=== PATIENT | female | born 1995 ===

== ENCOUNTER 2022-11-03 14:07 | Emergency (ER) | payer OTHER, SELFPAY ==
--- NOTE | ~2022-11-03 | CT_ITS ---
EXAMINATION: CT ANGIOGRAM OF THE CHEST WITH AND WITHOUT CONTRAST (CT PULMONARY ANGIOGRAM FOR PE) CLINICAL INFORMATION: Reason for Exam CP, hx of PE, stopped AC for several weeks COMPARISON: None available. TECHNIQUE: Prior to contrast administration, noncontrast localization images were obtained. Subsequently, multidetector volumetric imaging was performed from the thoracic inlet to below the diaphragms following the administration of 65 mL Omnipaque 350 intravenous contrast. No contrast reaction reported Sagittal, coronal, and MIP oblique sagittal reformatted images were obtained on the CT workstation, uploaded to PACS, and reviewed. This CT examination was performed using dose optimization techniques as appropriate, variously including the following: *Automated exposure control *Adjustment of mA and/or kV according to patient size (this includes techniques or standardized protocols for targeted exams where dose is matched to indication/reason for exam; i.e. extremities or head) *Use of iterative reconstruction technique Total exam dose-length product 221 mGy-cm FINDINGS: QUALITY OF STUDY/CONTRAST BOLUS: Satisfactory. PULMONARY ARTERIES: No pulmonary emboli. THORACIC AORTA: No aneurysm. LUNG: Mild diffuse bronchial wall thickening with scattered intrabronchial mucous secretions. No focal consolidation or significant groundglass disease. Central airways are patent. PLEURA: No pleural effusion or pneumothorax. MEDIASTINUM: Normal heart size. No pericardial effusion. No hilar or mediastinal lymphadenopathy. No evidence of septal bowing or right heart strain. CORONARY ARTERY CALCIFICATION: None visualized on this study. CHEST WALL/AXILLA: No axillary or internal mammary lymphadenopathy. OSSEOUS STRUCTURES: No acute or suspicious osseous abnormality. UPPER ABDOMEN: Unremarkable. No reflux of contrast into the hepatic veins to suggest elevated right heart pressures. CT/CT angio chest PE protocol IMPRESSION: 1. No evidence of pulmonary embolism. 2. Mild diffuse bronchial wall thickening with scattered intrabronchial mucous secretions, suggesting small airways disease. VTE: negative
[2022-11-03 15:16] VITALS: BP 117/74; PULSE 75; RESP 18; TEMP 36.3; O2SAT 98; BMI 23.1
--- NOTE | 2022-11-03 15:16 | ED_ITS ---
HPI - SOB/Dyspnea General Chief Complaint: Dyspnea Stated Complaint: sent from Time Seen by Provider: 11/03/22 17:20 Source: patient Mode of arrival: ambulatory Limitations: no limitations History of Present Illness HPI Narrative: 27-year-old female with history of pulmonary embolus and strong family history of pulmonary embolus presents with chest pain, shortness of breath. Symptoms started this past weekend. She describes them as mild in the onset and then became more moderate. Symptoms included chest pain, shortness of breath, diaphoresis but no fevers or chills. Symptoms appear to have been worsened by exertion. She denies any fevers or chills. No cough or mucus production. She also did describe some calf soreness bilaterally. There has been no swelling in her legs. Patient is unclear with the etiology of her clotting disorder might be or family clotting disorders. Workup was reportedly negative. Patient has stopped her anticoagulation approximately 1 month ago. Her physician at sent in a refill the medication and just started it up again 2 days ago. Related Data Previous Rx's Medication Instructions Recorded albuterol sulfate 90 mcg/actuation 2 puff inhalation QID PRN 11/03/22 aerosol inhaler shortness of breath or wheezing #6.7 grams prednisone 10 mg tablet 10 mg PO DAILY #3 tabs 11/03/22 Allergies Allergy/AdvReac Type Severity Reaction Status Date / Time No Known Allergies Allergy Verified 11/03/22 15:15 Review of Systems Review of Systems: CONSTITUTIONAL: Denies weight loss, fever and chills. HEENT: Denies changes in vision and hearing. RESPIRATORY: + SOB - cough. CV: + palpitations no CP. GI: Denies abdominal pain, nausea, vomiting and diarrhea. : Denies dysuria and urinary frequency. MSK: Denies myalgia and joint pain. SKIN: Denies rash and pruritus. NEUROLOGICAL: Denies headache and syncope. PSYCHIATRIC: Denies recent changes in mood. Denies anxiety and depression. All other ROS are negative unless in HPI PMFSH Social History Social History Advance Directives: No Advance Directives Information Provided: Yes Physical Exam Vital Signs: Vital Signs: Last Vital Signs Temp 98.1 F 11/03/22 19:21 Pulse 67 11/03/22 19:21 Resp 17 11/03/22 19:21 BP 101/40 L 11/03/22 19:21 Pulse Ox 100 11/03/22 19:21 O2 Del Method Room Air 11/03/22 19:21 BMI result Body Mass Index 23.1 GEN: Well developed, no acute distress, alert, oriented HEENT: Normocephalic, atraumatic, normal external ears, nose appears normal, no oropharyngeal edema or exudates Eyes: Normal to appearance Neck: Supple, no lymphadenopathy Respiratory: Talks in complete sentences, no respiratory distress, clear to auscultation bilaterally Cardiovascular: Regular rate and rhythm, no murmurs rubs or gallops Abdomen: Soft, nontender, nondistended, no guarding, no rebound Back: No CVA tenderness Extremities: No clubbing cyanosis or edema Neurologic: No focal neurologic deficits, cranial nerves 2-12 intact, strength is 5/5 bilaterally Skin: No rash Course Course Course Narrative: This is an RME: Additional HPI, ROS, PE not included below will be deferred to primary provider. This is a [id number]-female, with a history of PE (diagnosed in Dec 2021 - was on coumadin up until September 2022 - stopped, just started xarelto on thursday), presenting to the emergency department with pleuritic chest pain, shortness of breath x 1 week. Has had sweats and calf pain since thursday. Reports tachycardia. [facility]. Appears comfortable, VSS. Plan: Labs, EKG, CTA chest Reevaluation(s) Reevaluation #1: The workup is complete. Patient does not have a PE. She can be discharged at this time continue anticoagulation. There is evidence of reactive airways disease and she did think she might have respiratory infection. Will start her on very low-dose steroid and inhaler. Time: 19:42 Medical Decision Making Medical Decision Making MDM Narrative: 27-year-old female with history of pulmonary embolus presents with shortness of breath. Also associated with chest pain. Examination is benign. EKG shows no evidence of right heart strain. Will check a CT scan angiogram the chest rule out acute pulmonary embolism possible other differential diagnoses. Atypical chest pain, musculoskeletal chest pain, chest wall pain, myocardial infarction, pericarditis, myocarditis, anxiety, stress, reflux, pneumonia, pulmonary embolus, dissection Differential Diagnosis Differential Diagnoses: The differential diagnosis associated with the presentation includes ( See above) Admission/Observation Consideration of admission/observation: Escalation of care including admission/observation considered Lab Data MDM Lab Attestation statement: I reviewed the patient's lab results. 11/03/22 15:37 11/03/22 15:37 Labs: Lab Results 11/03/22 11/03/22 11/03/22 Range/Units 15:37 15:37 15:37 WBC 8.7 (4.8-10.8) X10*3/uL RBC 4.67 (4.20-5.50) X10*6/uL Hgb 14.0 (12.0-16.0) g/dl Hct 41.9 (37.0-47.0) % MCV 89.7 (80.0-98.0) fL MCH 30.0 (27.0-33.0) pg MCHC 33.4 (31.0-35.0) g/dl RDW 13.3 (11.0-16.0) % Plt Count 356 (160-400) X10*3/uL MPV 8.5 L (9.4-12.3) fL Immature Gran % (Auto) 0.1 (0.0-0.4) % Neut % (Auto) 55.5 (45-73) % Lymph % (Auto) 31.7 (20-40) % [place] % (Auto) 8.0 (2-11) % Eos % (Auto) 4.0 (0-4) % Baso % (Auto) 0.7 (0-2) % Lymph # (Auto) 2.8 (1.2-4.9) X10*3/uL [place] # (Auto) 0.7 (0.1-1.2) X10*3/uL Eos # (Auto) 0.4 (0.0-0.4) X10*3/uL Baso # (Auto) 0.1 (0.0-0.2) X10*3/uL Abs Immat Gran (auto) 0.01 (0.00-0.03) X10*3/uL Absolute Neuts (auto) 4.8 (2.0-8.3) x10*3/uL Absolute Nucleated RBC 0.000 (0.0-0.012) X10*3/uL Nucleated RBC % (auto) 0.0 (0.0-0.2) /100WBC PT 11.0 L (11.1-13.3) SEC INR 0.9 (0.9-1.1) APTT 29.2 (26.0-36.4) SEC Sodium 137 (135-145) mmol/L Potassium 3.8 (3.3-5.1) mmol/L Chloride 110 H (96-108) mmol/L Carbon Dioxide 19 L (22-29) mmol/L Anion Gap 12 (12-20) BUN 13 (9-16) mg/dL Creatinine 0.67 (0.5-1.4) mg/dL Estim Creat Clear Calc 97.9 Estimated GFR > 60 Random Glucose 89 (60-115) mg/dL Calcium 9.1 (8.4-10.2) mg/dL Total Bilirubin 0.3 (0.0-1.0) mg/dL Direct Bilirubin 0.1 (0.0-0.5) mg/dL AST 15 (5-31) U/L ALT 12 (0-31) U/L Alkaline Phosphatase 70 (39-117) U/L Total Protein 7.4 (6.5-8.0) g/dL Albumin 3.7 (3.5-5.0) g/dL Independent Interpretation I performed an independent interpretation of an: EKG ( normal sinus rhythm heart rate 74, no acute ST elevations depressions, no abnormal intervals. Normal EKG) and CT Scan ( angio chest: No acute large pulmonary embolus) Radiology Impression Discussion of test interpretation with radiology: I have reviewed the radiologist's reading. Radiologist Impression: CT/CT angio chest PE protocol IMPRESSION: 1.? No evidence of pulmonary embolism. 2.? Mild diffuse bronchial wall thickening with scattered intrabronchial mucous secretions, suggesting small airways disease. ? VTE: negative Dictated By: Miri Ramirez Signed By: <Electronically signed by Miri? James in OV> 11/03/221907 Prescription Management I considered prescription management with: Pain Medication Critical Care Time Critical Care Time Critical Care Time: Yes Total Critical Care Time: 35 Attestation: Due to a high probability of clinically significant, life threatening deterioration, the patient required my highest level of preparedness to intervene emergently and I personally spent this critical care time directly and personally managing the patient. This critical care time included obtaining a history; examining the patient; pulse oximetry; ordering and review of studies; arranging urgent treatment with development of a management plan; evaluation of patient's response to treatment; frequent reassessment; and, discussions with other providers. This critical care time was performed to assess and manage the high probability of imminent, life-threatening deterioration that could result in multi-organ failure. It was exclusive of separately billable procedures and treating other patients and teaching time. Discharge Plan Discharge Clinical Impression: Asthma with exacerbation, Hx of pulmonary embolus Patient Disposition: Home, Self-Care Instructions: Asthma (ED), How to Use a Metered-Dose Inhaler (ED) Prescriptions: New prednisone 10 mg tablet 10 mg PO DAILY Qty: 3 0RF albuterol sulfate 90 mcg/actuation HFA aerosol inhaler 2 puff inhalation QID PRN (Reason: shortness of breath or wheezing) Qty: 6.7 0RF Referrals: Physician,Unknown J [Primary Care Provider] - (PMD as needed)
--- NOTE | 2022-11-03 15:21 | ECG_ITS ---
Test Reason : chest pain Blood Pressure : / mmHG Vent. Rate : 074 BPM Atrial Rate : 074 BPM P-R Int : 130 ms QRS Dur : 070 ms QT Int : 376 ms P-R-T Axes : 056 073 035 degrees QTc Int : 417 ms Normal sinus rhythm Normal ECG No previous ECGs available Referred By: Lilli Varner Electronically Signed By:DANNA RAMIRES
--- NOTE | 2022-11-03 15:24 | MHC.EDTECH ---
EKG completed and signed by attending. Labs collected and sent
[2022-11-03 15:41] LABS: MANUAL DIFF FLAG NO
[2022-11-03 15:42] LABS: Basophils Absolute Auto 0.1 X10*3/uL (0.0-0.2); Basophils Percent Auto 0.7 % (0-2); Eosinophils Absolute Auto 0.4 X10*3/uL (0.0-0.4); Hematocrit 41.9 % (37.0-47.0); Imm Gran Abs Auto 0.01 X10*3/uL (0.00-0.03); Imm Gran Pct Auto 0.1 % (0.0-0.4); Lymphocytes Absolute Auto 2.8 X10*3/uL (1.2-4.9); Lymphocytes Percent Auto 31.7 % (20-40); Mean Corpuscular HGB Conc 33.4 g/dl (31.0-35.0); Mean Corpuscular Volume 89.7 fL (80.0-98.0); Mean Platelet Volume 8.5 fL (9.4-12.3); Monocytes Absolute Auto 0.7 X10*3/uL (0.1-1.2); Neutrophils Absolute Auto 4.8 x10*3/uL (2.0-8.3); Neutrophils Percent Auto 55.5 % (45-73); Platelet Count 356 X10*3/uL (160-400); Red Blood Count 4.67 X10*6/uL (4.20-5.50); Red Cell Distribution Width 13.3 % (11.0-16.0); White Blood Count 8.7 X10*3/uL (4.8-10.8)
[2022-11-03 15:48] LABS: INTERNATIONAL NORM RATIO 0.9 (0.9-1.1)
[2022-11-03 15:50] LABS: Partial Thromboplastin Time 29.2 SEC (26.0-36.4)
[2022-11-03 16:19] LABS: Alanine Aminotransferase 12 U/L (0-31); Albumin Level 3.7 g/dL (3.5-5.0); Alkaline Phosphatase 70 U/L (39-117); Anion Gap 12 (12-20); Aspartate Amino Transferase 15 U/L (5-31); Bilirubin Direct 0.1 mg/dL (0.0-0.5); Bilirubin Total 0.3 mg/dL (0.0-1.0); Blood Urea Nitrogen 13 mg/dL (9-16); Calcium 9.1 mg/dL (8.4-10.2); Carbon Dioxide 19 mmol/L (22-29); Chloride 110 mmol/L (96-108); Creatinine Clr Calc Pharmacy 97.9; Estimated Glomerular Filt Rate > 60; Glucose Random 89 mg/dL (60-115); Potassium 3.8 mmol/L (3.3-5.1); Sodium 137 mmol/L (135-145); Total Protein 7.4 g/dL (6.5-8.0)
--- NOTE | 2022-11-03 18:02 | PC.NURSE ---
Dr. Dorantes placed ultrasound guided 20g in LAC. Pt now resting comfortably, respirations even and unlabored, normal sinus on monitor
[2022-11-03 19:21] VITALS: BP 101/40; PULSE 67; RESP 17; TEMP 36.7; O2SAT 100
--- NOTE | 2022-11-03 19:49 | MHC.EDTECH ---
Brought patient erika shaista and saltine crackers.
--- NOTE | 2022-11-03 20:25 | PC.NURSE ---
pt talking in full sentences, skin pink warm and dry. no s/s of resp distress. sat wn. steady gait. 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
== END 2022-11-03 20:29 | disposition home or self-care (01) ==
PROVIDERS: Physician Assistant Medical; Emergency Provider Emergency Medicine
DX: J45.901 Unspecified asthma with (acute) exacerbation (principal); R06.02 Shortness of breath; R07.89 Other chest pain; Z79.899 Other long term (current) drug therapy
CPT/HCPCS: 36415; 71275; 80048; 80076; 85025; 85610; 85730; 93005; 99284

== ENCOUNTER 2023-02-26 10:58 | Emergency (ER) | payer OTHER, SELFPAY ==
--- NOTE | ~2023-02-26 | CT_ITS ---
EXAMINATION: CT HEAD WITHOUT CONTRAST CLINICAL INFORMATION: Headache. COMPARISON: None available. TECHNIQUE: Contiguous axial imaging was performed from the skull base to vertex without intravenous administration of contrast. This CT examination was performed using dose optimization techniques as appropriate, variously including the following: *Automated exposure control *Adjustment of mA and/or kV according to patient size (this includes techniques or standardized protocols for targeted exams where dose is matched to indication/reason for exam; i.e. extremities or head) *Use of iterative reconstruction technique DLP: 593 mGy-cm FINDINGS: The lateral, third and fourth ventricles are normally outlined. The cortical sulci and basal cisterns are normally outlined as well. There is no acute territorial defect, hemorrhage or midline shift. The extra-axial spaces are unremarkable. Calvarium: Intact. Maxilla facial sinuses and mastoids: There is right ethmoid sinus mucosal thickening. The remaining visualized maxillofacial sinuses and mastoids are unremarkable. CT/CT head/brain wo IV con IMPRESSION: No acute intracranial pathology.
--- NOTE | ~2023-02-26 | CT_ITS ---
EXAMINATION: CT ANGIOGRAM OF THE CHEST WITH AND WITHOUT CONTRAST (CT PULMONARY ANGIOGRAM FOR PE) CLINICAL INFORMATION: Reason for Exam back pain COMPARISON: None available. TECHNIQUE: Prior to contrast administration, noncontrast localization images were obtained. Subsequently, multidetector volumetric imaging was performed from the thoracic inlet to below the diaphragms following the administration of 65 mL Omnipaque 350 intravenous contrast. No contrast reaction reported Sagittal, coronal, and MIP oblique sagittal reformatted images were obtained on the CT workstation, uploaded to PACS, and reviewed. This CT examination was performed using dose optimization techniques as appropriate, variously including the following: *Automated exposure control *Adjustment of mA and/or kV according to patient size (this includes techniques or standardized protocols for targeted exams where dose is matched to indication/reason for exam; i.e. extremities or head) *Use of iterative reconstruction technique Total exam dose-length product 149 mGy-cm FINDINGS: QUALITY OF STUDY/CONTRAST BOLUS: Satisfactory. PULMONARY ARTERIES: No pulmonary emboli. THORACIC AORTA: No aneurysm. LUNG: No focal consolidation, nodules or masses. PLEURA: No pleural effusion or pneumothorax. MEDIASTINUM: Normal heart size. No pericardial effusion. No hilar or mediastinal lymphadenopathy. No evidence of septal bowing or right heart strain. CORONARY ARTERY CALCIFICATION: None visualized on this study. CHEST WALL/AXILLA: No axillary or internal mammary lymphadenopathy. OSSEOUS STRUCTURES: No acute or suspicious osseous abnormality. UPPER ABDOMEN: Unremarkable. No reflux of contrast into the hepatic veins to suggest elevated right heart pressures. CT/CT angio chest PE protocol IMPRESSION: No evidence of PE. No evidence of aortic dissection or aneurysm. VTE: negative
--- NOTE | 2023-02-26 11:23 | ED.GENADULT ---
HPI - General Adult General Chief complaint: Headache Stated complaint: multiple issues Time Seen by Provider: 02/26/23 16:01 Source: patient, RN notes reviewed and old records reviewed Mode of arrival: ambulatory Limitations: no limitations History of Present Illness HPI narrative: Pt is a 27yo female who presents to the ED with a throbbing headache for 1.5wks. She states the headache bilateral in the temporal lobes, but worst on the right. She states the pain is constant but worsening, ranging from a 7-10/10. Pt also notes associated back pains worse on the right side in the area of the 10th rib, right shoulder pain, and bilateral low back pain. She states the body pains began 3 days after the onset of the headache. She is on rivoxiparin due to a PE in about a year ago. She states that in the past month she missed a week of her medication. She has been taking Tylenol with no relief. Denies changes in vision, sensory deficits, or dizziness. Related Data Previous Rx's Medication Instructions Recorded albuterol sulfate 90 mcg/actuation 2 puff inhalation QID PRN 11/03/22 aerosol inhaler shortness of breath or wheezing #6.7 grams prednisone 10 mg tablet 10 mg PO DAILY #3 tabs 11/03/22 [id number]-jhtdslsnmooho-hwixgfei 1 cap PO Q4H PRN headache #12 caps 02/27/23 50 mg-300 mg-40 mg capsule (Fioricet) Allergies Allergy/AdvReac Type Severity Reaction Status Date / Time No Known Allergies Allergy Verified 11/03/22 15:15 Review of Systems Constitutional: Constitutional: Reports body ache(s), Denies chills, Reports difficulty sleeping, Denies fever(s) and Reports headache(s) Eyes: Eyes: Denies blurry vision and Denies change in vision ENT: Denies dizziness and Reports headache(s) Cardiovascular: Cardiovascular: Denies chest pain and Reports dyspnea on exertion Respiratory: Respiratory: Denies cough and Reports dyspnea on exertion Gastrointestinal: Gastrointestinal: Denies abdominal pain, Denies change in stool character, Denies nausea and Denies vomiting Genitourinary: Genitourinary: Denies difficulty voiding and Denies dysuria Musculoskeletal: Musculoskeletal: Reports back pain, Reports arthralgias (right shoulder pain), Reports numbness (numbness of both buttocks), Denies radiating pain into limb and Denies tingling Neurologic: Denies dizziness, Reports headache(s), Denies focal weakness, Reports numbness (numbness of both buttocks), Denies Sensory deficit (Neuro) and Denies tingling PMFSH Social History Social History Advance Directives: No Advance Directives Information Provided: Yes Physical Exam ED Vital Signs: Vital Signs - 24 hr 02/26/23 11:24 Temperature 97.3 F Pulse Rate 73 Respiratory Rate 20 Blood Pressure 123/76 Pulse Oximetry 96 Oxygen Delivery Method Room Air BMI result Body Mass Index 22.3 Const General: cooperative, no acute distress, alert and awake Orientation/consciousness: patient oriented x3 HENMT Head: Yes normal to inspection, Yes normocephalic and Yes atraumatic Ears: hearing grossly normal bilaterally General nose exam: Normal external nose present Eyes General: appearance normal, both eyes and all related structures Eyelids: Yes eyelids normal Pupils: Equal, round and reactive pupils present Resp Effort & Inspection: normal respiratory effort and able to speak in complete sentences Auscultation: clear to auscultation bilaterally Cardio Rate: regular rate Rhythm: regular rhythm Heart sounds: S1 normal heart sound present and S2 normal heart sound present GI Inspection: Yes normal to inspection Palpation (GI): Soft to palpation and nontender General: No no CVA tenderness Back/Spine/Pelvis Back: No no CVA tenderness Thoracic/Lumbar Spine: thoracic and lumbar spine normal to inspection and other (tender to palp of right 6-9 ribs on back) Neuro General: patient oriented x3 Cranial nerves: Yes CN's II-XII intact bilaterally and Yes Equal, round and reactive pupils present Motor exam (neuro): 5/5 motor strength present throughout Sensory Exam: No Sensory deficit (Neuro) Course Course Course Narrative: This is a rapid medical exam: Additional HPI, ROS, PE not included below will be deferred to primary provider. Patient is a 27-year-old female presenting to the emergency department with complaint of 2 weeks of headaches, then developed lower back pain, also complains of right flank pain. States headache is to right side of head, feels as though right side of head is even warm to touch, +photophobia. Reports headaches began as tolerable and have worsened. Denies history of migraines. States headache feels the same as spinal headache she had after having an epidural. States pain extends to neck. Has not taken anything other than Tylenol for symptoms. Denies dysuria, frequency, hematuria. PCP referred to ED for CT head. Plan: labs, UA, CT head Reevaluation(s) Reevaluation #1: CTA negative for PE, the patient can be discharged to follow the PCP Time: 21:46 Medications Administered Discontinued Medications Generic Name Dose Route Start Last Admin Trade Name Enrique PRN Reason Stop Dose Admin Diphenhydramine HCl 25 mg 02/26/23 16:35 02/26/23 20:44 Diphenhydramine Hcl 50 Mg/Ml Vial IVPUSH 02/26/23 16:36 25 mg ONCE ONE Administration Sodium Chloride 1,000 mls @ 999 mls/hr 02/26/23 16:45 02/26/23 22:02 Ns IV 02/26/23 17:45 Infused .Q1H1M GRAZYNA Infusion Iohexol 85 ml 02/26/23 20:33 02/26/23 20:33 Iohexol 350 Mg/Ml 100 Ml Infus..Btl IV 02/26/23 20:34 85 ml ONCE ONE Administration Metoclopramide HCl 10 mg 02/26/23 16:35 02/26/23 20:44 Metoclopramide Hcl 10 Mg/2 Ml Vial IVPUSH 02/26/23 16:36 10 mg ONCE ONE Administration Procedures Procedure Narrative Procedure Narrative: Patient did have an IV line placed by nursing staff that blue during angiography attempt. I was asked to start an ultrasound-guided IV line. With the patient's consent I was able to insert a 20 gauge peripheral ultrasound-guided IV in the left upper arm. There was good drawback of blood and the line flushed well Medical Decision Making Medical Decision Making MDM Narrative: 27-year-old female with past medical history significant for PE on Xarelto presents for evaluation of numerous complaints including headache. She describes headache with light sensitivity that is possibly consistent with a migraine headache. CT scan of brain shows no significant abnormalities. He also complains of back pain right shoulder pain that sounds pleuritic in nature and endorses shortness of breath negativity. Workup thus far unremarkable. She has been noncompliant with her Xarelto. For this reason I will admit D-dimer. She is not tachypneic, tachycardic or hypoxic. Denies any other risk factors for PE outside of the history. She denies any recent travel Differential Diagnosis Differential Diagnoses: The differential diagnosis associated with the presentation includes (complex migraine, pulmonary embolism, inretractable headache, MS, community acquired PNA) Lab Data MDM Lab Attestation statement: I reviewed the patient's lab results. No leukocytosis or anemia, no significant electrolyte abnormalities. Normal renal function. 02/26/23 14:04 02/26/23 14:04 Labs: Lab Results 02/26/23 02/26/23 Range/Units 14:04 17:05 WBC 8.1 (4.8-10.8) X10*3/uL RBC 4.86 (4.20-5.50) X10*6/uL Hgb 14.3 (12.0-16.0) g/dl Hct 43.8 (37.0-47.0) % MCV 90.1 (80.0-98.0) fL MCH 29.4 (27.0-33.0) pg MCHC 32.6 (31.0-35.0) g/dl RDW 12.8 (11.0-16.0) % Plt Count 401 H (160-400) X10*3/uL MPV 8.6 L (9.4-12.3) fL Immature Gran % (Auto) 0.2 (0.0-0.4) % Neut % (Auto) 63.7 (45-73) % Lymph % (Auto) 23.7 (20-40) % [place] % (Auto) 7.4 (2-11) % Eos % (Auto) 4.3 H (0-4) % Baso % (Auto) 0.7 (0-2) % Lymph # (Auto) 1.9 (1.2-4.9) X10*3/uL [place] # (Auto) 0.6 (0.1-1.2) X10*3/uL Eos # (Auto) 0.4 (0.0-0.4) X10*3/uL Baso # (Auto) 0.1 (0.0-0.2) X10*3/uL Abs Immat Gran (auto) 0.02 (0.00-0.03) X10*3/uL Absolute Neuts (auto) 5.1 (2.0-8.3) x10*3/uL Absolute Nucleated RBC 0.000 (0.0-0.012) X10*3/uL Nucleated RBC % (auto) 0.0 (0.0-0.2) /100WBC D-Dimer High Sensitivty 558 NG/ML Sodium 138 (135-145) mmol/L Potassium 3.8 (3.3-5.1) mmol/L Chloride 106 (96-108) mmol/L Carbon Dioxide 24 (22-29) mmol/L Anion Gap 12 (12-20) BUN 7 L (9-16) mg/dL Creatinine 0.59 (0.5-1.4) mg/dL Estim Creat Clear Calc 111.3 Estimated GFR > 60 Random Glucose 98 (60-115) mg/dL Calcium 9.6 (8.4-10.2) mg/dL Beta HCG, Quant < 2 mIU/mL Independent Interpretation I performed an independent interpretation of an: CT Scan (No acute intracranial hemorrhage) Radiology Impression Discussion of test interpretation with radiology: I have reviewed the radiologist's reading. (No acute intracranial pathology) Discharge Plan Discharge Clinical Impression: Headache Patient Disposition: Home, Self-Care Instructions: Acute Headache (ED) Additional Instructions: Your workup in the emergency department today was reassuring Your CT scan did not show any evidence of blood clots You may use Fioricet as needed for headaches Follow-up with your primary doctor Prescriptions: New vpqokdsast-utzkmkduhzwlr-ydll [Fioricet] 50-300-40 mg capsule 1 cap PO Q4H PRN (Reason: headache) Qty: 12 0RF No Action prednisone 10 mg tablet 10 mg PO DAILY Qty: 3 0RF albuterol sulfate 90 mcg/actuation HFA aerosol inhaler 2 puff inhalation QID PRN (Reason: shortness of breath or wheezing) Qty: 6.7 0RF Interventions: ED Discharge Assessment Last Done: 02/26/23 22:43 Discharge Date/Time: 02/26/23 22:44
[2023-02-26 11:24] VITALS: BP 123/76; PULSE 73; RESP 20; TEMP 36.3; O2SAT 96; BMI 22.3
[2023-02-26 14:08] LABS: MANUAL DIFF FLAG NO
[2023-02-26 14:10] LABS: Basophils Absolute Auto 0.1 X10*3/uL (0.0-0.2); Basophils Percent Auto 0.7 % (0-2); Eosinophils Absolute Auto 0.4 X10*3/uL (0.0-0.4); Eosinophils Percent Auto 4.3 % (0-4); Hematocrit 43.8 % (37.0-47.0); Hemoglobin 14.3 g/dl (12.0-16.0); Imm Gran Abs Auto 0.02 X10*3/uL (0.00-0.03); Imm Gran Pct Auto 0.2 % (0.0-0.4); Lymphocytes Absolute Auto 1.9 X10*3/uL (1.2-4.9); Lymphocytes Percent Auto 23.7 % (20-40); Mean Corpuscular HGB Conc 32.6 g/dl (31.0-35.0); Mean Corpuscular Hemoglobin 29.4 pg (27.0-33.0); Mean Corpuscular Volume 90.1 fL (80.0-98.0); Mean Platelet Volume 8.6 fL (9.4-12.3); Monocytes Absolute Auto 0.6 X10*3/uL (0.1-1.2); Monocytes Percent Auto 7.4 % (2-11); Neutrophils Absolute Auto 5.1 x10*3/uL (2.0-8.3); Neutrophils Percent Auto 63.7 % (45-73); Platelet Count 401 X10*3/uL (160-400); Red Blood Count 4.86 X10*6/uL (4.20-5.50); Red Cell Distribution Width 12.8 % (11.0-16.0); White Blood Count 8.1 X10*3/uL (4.8-10.8)
[2023-02-26 14:29] LABS: Anion Gap 12 (12-20); Blood Urea Nitrogen 7 mg/dL (9-16); Calcium 9.6 mg/dL (8.4-10.2); Carbon Dioxide 24 mmol/L (22-29); Chloride 106 mmol/L (96-108); Creatinine Clr Calc Pharmacy 111.3; Estimated Glomerular Filt Rate > 60; Glucose Random 98 mg/dL (60-115); Potassium 3.8 mmol/L (3.3-5.1); Sodium 138 mmol/L (135-145)
[2023-02-26 14:33] LABS: HCG Quantitative < 2 mIU/mL
[2023-02-26 18:02] LABS: D Dimer High Sensitivity 558 NG/ML
--- NOTE | 2023-02-26 19:28 | PC.NURSE ---
patient difficult stick, multiple attempts at IV. IV established prior to CT scan, unable to complete CT scan d/t insufficent IV.
--- NOTE | 2023-02-26 20:09 | PC.NURSE ---
Alex PA in with pt to obtain iv access
[2023-02-26] MEDS: iohexoL 350 MG/ML 100 ML INFUS..BTL 85 ML IV (20:33)
[2023-02-26] MEDS: 0.9 % Sodium Chloride 1,000 ML 999 ML IV (20:44)
[2023-02-26] MEDS: diphenhydrAMINE HCL 50 MG/ML VIAL 25 MG IVPUSH (20:44)
[2023-02-26] MEDS: Metoclopramide HCl 10 MG/2 ML VIAL IVPUSH (20:44)
--- NOTE | 2023-02-26 20:52 | PC.NURSE ---
pt medicated per MAR
== END 2023-02-26 22:44 | disposition home or self-care (01) ==
PROVIDERS: Physician Assistant; Registered Nurse Emergency; Emergency Provider Internal Medicine; PCP Internal Medicine
DX: R51.9 Headache, unspecified (principal); M54.50 Low back pain, unspecified; R07.81 Pleurodynia; R10.9 Unspecified abdominal pain; M79.10 Myalgia, unspecified site; M25.511 Pain in right shoulder; Z79.899 Other long term (current) drug therapy
CPT/HCPCS: 36415; 70450; 71275; 80048; 84702; 85025; 85379; 96361; 96374; 96375; 99284; J1200; J2765; Q9967

== ENCOUNTER 2023-04-08 22:20 | Emergency (ER) | payer OTHER, SELFPAY ==
[2023-04-08 22:29] VITALS: BP 110/68; PULSE 80; RESP 16; TEMP 37.1; O2SAT 99; BMI 23.4
[2023-04-09 00:05] VITALS: BP 110/78; PULSE 78; RESP 17; TEMP 36.6; O2SAT 100
--- NOTE | 2023-04-09 00:12 | MHC.EDTECH ---
This Tech assumed care of this PT. pt changed into hospital gown VS completed
--- NOTE | 2023-04-09 00:20 | ED_ITS ---
HPI - General Adult General Chief complaint: General Medical Stated complaint: here for IV antibiotic treatment Time Seen by Provider: 04/09/23 00:19 Source: patient Mode of arrival: ambulatory Limitations: no limitations History of Present Illness HPI narrative: 27-year-old female with a history of Crohn's disease, pulmonary embolism who presents emergency department for evaluation for possible mastoiditis. Patient has had a constant headache for 6 weeks. She states that the headache is located on the top of her head and is a sharp, throbbing sensation. She states the headache is present when she wakes up in lasts all day long. She states the headache is worse if she bends over. She has had no visual changes associated with her headache. She states that bright lights and loud noises do make the headache worse. She had no nausea or vomiting. She denied numbness or weakness associated with her headaches. She states she has been having pain in her muscles and joints over the past 6 weeks. She has also had a rash on her skin which her doctor recently started her on doxycycline 100 mg twice a day for 7 days-she has been taking for 4 days with improvement of her rash. The patient does have a history of Crohn's disease and has had a colectomy as well as small-bowel surgeries in the past she states she was taking Stelara but stop this medication 2 years prior. 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 The patient did follow-up with her PCP for evaluation of her headaches. Patient had an MRI without IV contrast that revealed mild right maxillary sinus thickening and fluid in the right mastoid air cells greater than the left. The patient's PCP contacted her and advised her to go to the emergency department for evaluation for possible mastoiditis and for IV antibiotics Related Data Previous Rx's Medication Instructions Recorded albuterol sulfate 90 mcg/actuation 2 puff inhalation QID PRN 11/03/22 aerosol inhaler shortness of breath or wheezing #6.7 grams prednisone 10 mg tablet 10 mg PO DAILY #3 tabs 11/03/22 [id number]-[id number]-xahacwfy 1 cap PO Q4H PRN headache #12 caps 02/27/23 50 mg-300 mg-40 mg capsule (Fioricet) acetaminophen 500 mg tablet 1,000 mg (2 x 500 mg) PO Q6H PRN 04/09/23 (Tylenol Extra Strength) fever or pain #20 tabs diphenhydramine HCl 25 mg capsule 50 mg (2 x 25 mg) PO Q6H PRN 04/09/23 headache, nausea, vomiting #20 caps metoclopramide HCl 10 mg tablet 10 mg PO Q6H PRN nausea and 04/09/23 (Reglan) vomiting #14 tabs Allergies Allergy/AdvReac Type Severity Reaction Status Date / Time No Known Allergies Allergy Verified 04/08/23 22:29 Review of Systems Review of Systems: Yes all other systems are reviewed and are negative [facility] Past Medical History [facility] Narrative: Past medical history: Crohn's disease, pulmonary embolism on Xarelto. Past surgical history: Colectomy, small-bowel resection. Social history: She denies tobacco, alcohol and drug use. Social History Social History Advance Directives: No Advance Directives Information Provided: No Physical Exam ED Vital Signs: Vital Signs - 24 hr 04/08/23 22:29 04/09/23 00:05 Temperature 98.7 F 97.9 F Pulse Rate 80 78 Respiratory Rate 16 17 Blood Pressure 110/68 110/78 Pulse Oximetry 99 100 Oxygen Delivery Method Room Air Room Air BMI result Body Mass Index 23.4 Vital signs were normal Exam: General: Awake, alert in no distress Head: Normocephalic, atraumatic EENT: PERRL, Lids normal, sclera normal, conjunctiva normal, nose normal , external ear exam was normal, there is no increased warmth or erythema over the mastoid area on the right or left ear, there is no tenderness with palpation of the mastoid sinuses. Patient's tympanic membranes were normal in color with no erythema. Neck: Supple, no adenopathy, Lung: breath sounds symmetric, no wheezing, rales or rhonchi Chest: symmetric movement, nontender Heart: regular rate and rhythm, normal S1, S2 no murmurs or rubs Abdomen: soft, non-tender, nondistended, normal bowel sounds Back: no vertebral tenderness, no CVAT Extremities: no deformities, moves all extremities symmetrically, there has no increased warmth or erythema over the patient's joints of her hands, wrists, elbows, knees, ankles. Skin: I do not see an obvious skin rash at this time. Neuro: Awake, alert, oriented, normal speech, cranial nerves intact, moves all extremities symmetrically Psych: Pleasant, cooperative Medical Decision Making Medical Decision Making MDM Narrative: 27-year-old female with a history of Crohn disease, pulmonary embolism on Xarelto who presents emergency department for evaluation of possible mastoiditis secondary to MRI without contrast revealed fluid in the right and left mastoid air cells with the right being greater than the left as well as thickening of the right maxillary sinus. Patient has had a constant headache for 6 weeks associated with photophobia and phonophobia. She has also had bilaterally symmetric joint and muscle pain for 6 weeks. Patient's vital signs were normal. Patient's physical examination revealed no evidence for acute mastoiditis and I did discuss this with the patient. The MRI did not reveal any clear cause for the patient's constant, 6 week headache. Patient states that when she was here in February of 2023 she did get medications that helped her headache. In reviewing his ER visit she was treated with Benadryl 50 mg IV and Reglan 10 mg IV. Therefore the patient will be treated with the following headache regimen every 6 hours as needed for pain. Reglan 10 mg, Benadryl 50 mg, and Tylenol 1000 mg orally. Patient was given printed and verbal instructions and discharged home. She also given a work note. Differential Diagnosis Differential Diagnoses: The differential diagnosis associated with the presentation includes Differential diagnosis includes was not limited to migraine headaches, headache syndrome, mastoiditis, otitis media, Crohn's disease flare-up, inflammatory joint disease Radiology Impression Discussion of test interpretation with radiology: I have reviewed the radiologist's reading. Radiologist Impression: I did review the patient's MRI without contrast report using the patient's portal. Patient does have bilateral fluid in the right and left mastoid region with the right being greater than left with minor thickening of the right maxillary sinus, there was no mass effect, mass or stroke noted on the MRI. External Record Review External record reviewed: Other (Outpatient labs and outpatient MRI) Prescription Management I considered prescription management with: Other (Crohn disease) Discharge Plan Discharge Clinical Impression: Chronic headache Patient Disposition: Home, Self-Care Additional Instructions: Your physical examination is not consistent with acute mastoiditis (infection of the mastoid air cells behind your ears). Usually with mastoiditis, you have an ear infection that then spreads to the mastoid air cells behind your easr. The area behind your ears then becomes red warm and swollen and is often very tender to touch. You do not have any of these physical findings, which is reassuring. The MRI of your brain did reveal fluid in your right as well as your left mastoid air cells with the right being greater than the left, again this is not consistent with an infection and I do not think that this finding explains your headache that you had for 6 weeks. Finish the doxycycline that was prescribed by your doctor I want you to take the following 3 medications together every 6 hours as needed for headache, nausea or vomiting. ? Reglan (metoclopramide) in 10 mg, 1 pill Benadryl 25 mg, 2 pills Extra-strength Tylenol 500 mg, 2 pills After you take these medications, lie down in a dark quiet room and try to fall asleep. ?These medications will make you sleepy, do not drive or work after taking these medications. Follow-up with your doctor in 2 days. Please return to the emergency department if your symptoms get worse or if you develop any symptoms that are concerning to you. Please see the work Prescriptions: New acetaminophen [Tylenol Extra Strength] 500 mg tablet 1,000 mg PO Q6H PRN (Reason: fever or pain) Qty: 20 0RF diphenhydramine HCl 25 mg capsule 50 mg PO Q6H PRN (Reason: headache, nausea, vomiting) Qty: 20 0RF metoclopramide HCl [Reglan] 10 mg tablet 10 mg PO Q6H PRN (Reason: nausea and vomiting) Qty: 14 0RF No Action prednisone 10 mg tablet 10 mg PO DAILY Qty: 3 0RF albuterol sulfate 90 mcg/actuation HFA aerosol inhaler 2 puff inhalation QID PRN (Reason: shortness of breath or wheezing) Qty: 6.7 0RF [id number] [Fioricet] 50-300-40 mg capsule 1 cap PO Q4H PRN (Reason: headache) Qty: 12 0RF Stand Alone Forms: Work/School Release
--- NOTE | 2023-04-09 01:45 | PC.NURSE ---
pt from home, a&ox4, respirations even and unlabored, pt reporting getting an MRI done and being told by a doctor that she needs to come to the ED for IV antibiotics. pt reports she has had chronic headache.
== END 2023-04-09 01:46 | disposition home or self-care (01) ==
PROVIDERS: Emergency Provider Emergency Medicine Emergency Medical Services; PCP Internal Medicine
DX: R51.9 Headache, unspecified (principal); H53.143 Visual discomfort, bilateral; Z86.711 Personal history of pulmonary embolism; Z79.01 Long term (current) use of anticoagulants
CPT/HCPCS: 99283; 99284